=== PATIENT | female | born 1955 | race Caucasian/White ===

== ENCOUNTER 2024-01-12 12:35 | Day surgery (SDC) | payer MEDICARE, MEDICAID ==
[2024-01-08 14:34] LABS: BASOPHILS # (AUTO) 0.1 X10'3 (0-0.2); BASOPHILS % (AUTO) 1.1 % (0-1); EOSINOPHILS # (AUTO) 0.1 X10'3 (0-0.9); EOSINOPHILS % (AUTO) 2.6 % (0-6); HEMATOCRIT 30.8 % (35.0-45.0); LYMPHOCYTES # (AUTO) 1.2 X10'3 (1.1-4.8); LYMPHOCYTES % (AUTO) 20.4 % (21-51); MEAN CORPUSCULAR HEMOGLOBIN 25.8 PG (27.0-31.0); MEAN CORPUSCULAR HGB CONC 32.6 g/dL (33.0-36.5); MEAN PLATELET VOLUME 6.9 FL (7.4-10.4); MONOCYTES # (AUTO) 0.4 X10'3 (0-0.9); MONOCYTES % (AUTO) 6.8 % (2-12); NEUTROPHILS % (AUTO) 69.1 % (42-75); PLATELET COUNT 281 X10'3 (140-440); RED CELL DISTRIBUTION WIDTH 17.2 % (11.5-14.5); WHITE BLOOD COUNT 5.8 X10'3 (4.5-11.0)
[2024-01-08 14:45] LABS: ALBUMIN 3.2 G/DL (3.4-5.0); ANION GAP 8 (8-16); BLOOD UREA NITROGEN 17 MG/DL (7-18); BUN/CREATININE RATIO 16.2 (10.0-20.0); CALCIUM 8.6 MG/DL (8.5-10.1); CHLORIDE 100 MMOL/L (99-107); CHOL/HDL RATIO 3.4 (0.00-4.99); CHOLESTEROL 153 MG/DL (0-200); CREATININE 1.05 MG/DL (0.40-0.90); HDL CHOLESTEROL 45 MG/DL (35-60); LDL CHOLESTEROL 78 MG/DL (50-100); POTASSIUM 4.2 MMOL/L (3.5-5.1); SODIUM 138 MMOL/L (135-145); TOTAL CARBON DIOXIDE 30.5 MMOL/L (24-32); TRIGLYCERIDES 252 MG/DL (20-135); eGFR 52 ML/MIN
[2024-01-08 14:46] LABS: GLUCOSE 99 MG/DL (70-104)
[2024-01-08 14:49] LABS: APTT 27 SECONDS (22-32); INR 1.1 INR; PROTHROMBIN TIME 11.3 SECONDS (9.0-12.0)
[2024-01-12] VITALS (8 sets, daily range): BP systolic 110–160; BP diastolic 59–97; PULSE 64–83; RESP 16–30; TEMP 98.6; O2SAT 90–99
[~2024-01-12] VITALS: Ht 160 cm; Wt 60.7 kg
[2024-01-12] MEDS ORDERED: LORazepam 0.5 MG tablet PO PRN (13:05)
[2024-01-12] MEDS ORDERED: normal saline 1,000 ML IV SCH (13:05)
[2024-01-12] MEDS ORDERED: diphenhydrAMINE 25mg capsule PO PRN (13:05)
[2024-01-12] MEDS ORDERED: fentaNYL/PF 50MCG/1 ML 2ML syringe ONE (13:54)
[2024-01-12] MEDS ORDERED: midazolam 1 mg/ML 2ml injection ONE (13:54)
[2024-01-12] MEDS ORDERED: LIDOcaine 1% (10mg/ml) 2ml vial ONE (13:55)
[2024-01-12] MEDS ORDERED: LOPE-190 PO (14:06)
[2024-01-12] MEDS ORDERED: MACI10TA2 PO (14:06)
[2024-01-12] MEDS ORDERED: ACET-1123 PO (14:06)
[2024-01-12] MEDS ORDERED: [UNRECOGNIZED DRUG - OTHER] PO (14:06)
[2024-01-12] MEDS ORDERED: FERR325T7 PO (14:06)
[2024-01-12] MEDS ORDERED: ROSU10TA28 PO (14:06)
[2024-01-12] MEDS ORDERED: METF-900 PO (14:06)
[2024-01-12] MEDS ORDERED: LEVO50TA8 PO (14:06)
[2024-01-12] MEDS ORDERED: OMEP20CA16 PO (14:06)
[2024-01-12] MEDS ORDERED: SILD20TA2 PO (14:06)
[2024-01-12] MEDS ORDERED: FOLI1TAB27 PO (14:06)
[2024-01-12] MEDS ORDERED: HYDROcodone/acetaminophen 5mg/325mg tablet PO PRN (15:10)
[2024-01-12] MEDS ORDERED: HYDROcodone/acetaminophen 10/325mg tab PO PRN (15:10)
[2024-01-13 06:40] LABS: ISTAT HGB MIX 10.2 g/dl (12.0-16.0); ISTAT Hct MIX 30 %PCV (35-45); ISTAT O2 SATURATION MIX VENOUS 67 % (60-80); ISTAT SOURCE OTHER
== END 2024-01-12 16:25 | disposition home or self-care (01) ==
LOC: SSTAY O 12:35
PROVIDERS: ATTEND Student in an Organized Health Care Education/Training Program
DX: I27.20 Pulmonary hypertension, unspecified (principal); I11.0 Hypertensive heart disease with heart failure; I50.9 Heart failure, unspecified; E78.5 Hyperlipidemia, unspecified; E11.9 Type 2 diabetes mellitus without complications; I07.1 Rheumatic tricuspid insufficiency; Z87.891 Personal history of nicotine dependence; Z79.84 Long term (current) use of oral hypoglycemic drugs; Z79.899 Other long term (current) drug therapy
CPT/HCPCS: 36415; 80048; 80061; 82803; 82948; 85014; 85025; 85610; 85730; 93005; 93456; 99152; J1644; J2250; J3010; J3490; J7030; 93451; A4615; A6258; C1751; C1769

== ENCOUNTER 2024-06-16 08:01 | Day surgery (SDC) | payer MEDICARE, MEDICAID ==
[~2024-06-16] VITALS: Ht 160 cm; Wt 63.6 kg
[~2024-06-16 08:01] MED LIST: ACET-1123 PO; CALC600T14 PO; CHOL20004 PO; FERR325T7 PO; LEVO50TA8 PO; LOPE-190 PO; METF-900 PO; OMEP20CA16 PO; ROSU10TA72 PO; SELE800T PO; SILD20TA14 PO; [UNRECOGNIZED DRUG - OTHER] PO
[2024-06-16 08:30] VITALS: BP 138/67; PULSE 82; RESP 17
[2024-06-16] MEDS ORDERED: fentaNYL/PF 50MCG/1 ML 2ML syringe ONE (09:53)
[2024-06-16] MEDS ORDERED: MIDAZolam 1 MG/ML 5ML VIAL ONE (09:53)
[2024-06-16] MEDS ORDERED: LIDOcaine 2% Viscous 15ml cup ONE (09:53)
[2024-06-16 10:19] VITALS: BP 86/56; PULSE 68; RESP 14; O2SAT 95
[2024-06-16 10:25] VITALS: BP 98/60; PULSE 72; RESP 16; O2SAT 92
[2024-06-16 10:35] VITALS: BP 97/56; PULSE 66; RESP 16; O2SAT 94
[2024-06-16 10:45] VITALS: BP 97/57; PULSE 66; RESP 21; O2SAT 95
== END 2024-06-16 10:55 | disposition home or self-care (01) ==
LOC: GI LAB 08:01
PROVIDERS: ATTEND Internal Medicine Gastroenterology
DX: R10.13 Epigastric pain (principal); K44.9 Diaphragmatic hernia without obstruction or gangrene; K31.89 Other diseases of stomach and duodenum; K29.70 Gastritis, unspecified, without bleeding
CPT/HCPCS: 43239; A4620; G0500; J2250; J3010; J7030; Z7512; 99152